=== PATIENT | male | born 1965 | race Caucasian/White ===

== ENCOUNTER → 2022-10-20 10:47 | Outpatient (REF) | payer OTHER, SELFPAY ==
--- NOTE | 2022-10-20 10:57 | CA_ITS ---
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 - The left ventricular systolic function is normal. The calculated ejection fraction is 69% by biplane method. - The left atrium is moderately dilated. - There is moderate posterior mitral leaflet prolapse. Eccentric, anteriorly directed mitral regurgitation. Probably severe. Underestimation possible. - Recommend a KHRIS. Findings Left Ventricle Mildly increased left ventricular cavity size. There is normal left ventricular wall thickness. The left ventricular systolic function is normal. The calculated ejection fraction is 69% by biplane method. There is no evidence of regional wall motion abnormalities. Diastolic function is normal for age. LV peak GLS -23.2%. Right Ventricle Mildly increased right ventricular cavity size. There is normal right ventricular systolic function. Atria The left atrium is moderately dilated. The right atrium is normal in size. Aortic Valve There is a normal trileaflet aortic valve. There is no aortic valve stenosis. There is no aortic valve regurgitation. Mitral Valve There is moderate posterior mitral leaflet prolapse. There is no mitral valve stenosis. Eccentric, anteriorly directed mitral regurgitation. Probably severe. Underestimation possible. (quantitative estimation is inaccurate). Pulmonic Valve The pulmonic valve is likely normal. Tricuspid Valve There is mild tricuspid valve regurgitation. There is no evidence of pulmonary hypertension. Great Vessels The asc aorta is normal in size. Venous The inferior vena cava is normal in size and collapses greater than 50% with inspiration. Pericardium/Pleural There is no evidence of pericardial effusion. Prior Study Comparison No prior study available for comparison. Recommendations, Care & Conclusions Recommend a KHRIS. Measurements 2D Linear Measurements IVSd: 0.97 0.6-0.9/0.6-1.0 cm LVIDd: 5.52 3.9-5.3/4.2-5.9 cm LVIDd Index: 2.97 2.4-3.2/2.2-3.1 cm/m2 LVIDs: 3.19 2.0-3.6 cm LVPWd: 0.96 0.7-1.1 cm LA Diam: 3.80 2.7-3.8/3.0-4.0 cm LAIDs Index: 2.04 1.5-2.3 cm/m2 LV Mass: 253.73 67-162/88-224 g LV Mass Index: 136.41 43-95/49-115 g/m2 LVOT Diam: 2.10 3.0+(-)1.3 cm 2D Systolic Function EF 4C: 63.60 >55% EF 2C: 71.60 >55% EF BiP: 69.00 >55% Mitral Valve MV Pk E: 1.54 MV PK A: 0.74 MV Decel Time: 187.00 E/A: 2.10 E'Lateral: 11.00 E'Medial: 10.20 E/E' Med: 15.10 E/E' Lat: 14.00 PHT: 55.00 MVA PHT: 4.00 Decel Patrick: 8.19 MR Vol - PW Dopp: 262.43 MR VTI: 1.61 MR ERO: 163.00 MR Alias Ayad: 0.37 MR RAD: 1.90 Aortic Valve AoV Pk Ayad: 1.32 AoV Mn Ayad: 0.74 AoV VTI: 0.29 AoV Pk Grad: 7.00 Aov Mn Grad: 3.00 CRYSTAL Cont.VTI: 2.35 LVOT LVOT Pk Ayad: 1.10 LVOT Mn Ayad: 0.57 LVOT VTI: 0.20 LVOT Pk Grad: 5.00 LVOT Mn Grad: 2.00 LVOT Diam: 2.10 LVOT Area: 3.46 Diastolic Function MV Pk E: 1.54 MV Pk A: 0.74 E/A: 2.10 E'Medial: 10.20 E/E' Med: 15.10 E' Laterial: 11.00 E/E' Lat: 14.00 Right Ventricle TAPSE (mm): 30.00 TVS' Ayad: 16.20 Tricuspid Valve TR Pk Ayad: 2.10 TR Pk Grad: 18.00 RA Press: 3.00 RVSP: 21.00 Great Vessels Aorta Sinus of Valsalva: 3.48 2.0-3.[address] Ridge: 2.41 1.7-3.4 cm Ao Asc: 3.20 2.1-3.4 cm Updated in Other Vendor System with Status of Final Joe Joe MD electronically signed on 10/20/2022 1:32:00 PM with status of Final
== END ==
LOC: HO.CARD 10:47
PROVIDERS: PCP Family Medicine; Visit Provider Family Medicine
DX: R01.1 Cardiac murmur, unspecified (principal)
CPT/HCPCS: 93306; 93356